=== PATIENT | male | born 1950 | race Two or more races ===

== ENCOUNTER 2018-07-25 08:47 | Emergency (ER) | payer MEDICARE, OTHER ==
[~2018-07-25] VITALS: Ht 165.1 cm; Wt 63.5 kg
[2018-07-25 09:15] VITALS: BP 167/83
[2018-07-25] MEDS ORDERED: cefTRIAXone SOD 1,000 MG VL IM ONE (10:00)
== END 2018-07-25 10:27 | disposition home or self-care (01) ==
LOC: ER 08:51
DX: K04.7 Periapical abscess without sinus (principal)
CPT/HCPCS: 41800; 96372; 99283; J0696

== ENCOUNTER 2018-08-23 11:23 | Emergency (ER) | payer MEDICARE ==
[~2018-08-23] VITALS: Ht 162.6 cm; Wt 70.3 kg
[2018-08-23 12:11] LABS: Basophils # (auto) 0 uL; Basophils % (auto) 0.2 % (0.0-2.0); Eosinophils # (auto) 0.3 uL; Eosinophils % (auto) 3.1 % (0.0-7.0); Hematocrit 47.8 % (41.0-53.0); Hemoglobin 16.3 g/dL (13.5-17.5); Lymphocytes # (auto) 1.6 uL; Lymphocytes % (auto) 18.4 % (10.0-50.0); Mean Corpuscular Hemoglobin 33.4 pg (28.0-32.0); Mean Corpuscular Hgb Conc. 34.1 g/dL (32.0-36.0); Mean Corpuscular Volume 97.8 fL (80.0-100.0); Monocytes # (auto) 0.9 uL; Monocytes % (auto) 10.4 % (0.0-12.0); Neutrophils # (auto) 5.7 uL; Neutrophils % (auto) 67.9 % (37.0-80.0); Nucleated Red Blood Cells % 0.1 %; Platelet Count (auto) 371 10^3/uL (140-450); Red Blood Cells 4.89 10^6/uL (4.5-5.90); Red Cell Distribution Width 12.8 % (11.8-14.3); White Blood Cell 8.5 10^3/uL (4.4-10.8)
[2018-08-23 12:20] LABS: Albumin 3.8 g/dL (3.4-5.0); Anion Gap 6 (5-15); Blood Urea Nitrogen 13 mg/dL (7-18); Calcium 8.9 mg/dL (8.5-10.1); Carbon Dioxide 28 mmol/L (21-32); Chloride 102 mmol/L (98-107); Glucose 103 mg/dL (74-106); Potassium 4.8 mmol/L (3.5-5.1); Sodium 136 mmol/L (136-145)
[2018-08-23 12:27] LABS: Alanine Aminotransferase 33 U/L (16-61); Alkaline Phosphatase 97 U/L (45-117); Aspartate Aminotransferase 30 U/L (15-37); BUN/Creatinine Ratio 13.3; Bilirubin, Total 0.7 mg/dL (0.2-1.0); GFR African American 98 mL/min; GFR Non-African American 81 mL/min; Total Protein 8.5 g/dL (6.4-8.2)
[2018-08-23 13:34] LABS: Urine Bacteria NONE SEEN /hpf (None Seen); Urine Blood TRACE /uL (Negative); Urine Mucus FEW (None Seen); Urine Specific Gravity 1.014 (1.001-1.035); Urine WBC <1 /hpf (0 - 3)
[2018-08-23] MEDS: SODIUM CHLORIDE 0.9% 1,000 ML IVB ONE (14:15)
[2018-08-23] MEDS: MORPHINE SULFATE 4 MG/ML SYR/VIAL IV ONE (15:32)
[2018-08-23] MEDS: ONDANSETRON HCL 4 MG/2 ML VIAL IV ONE (15:32)
[2018-08-23 17:01] VITALS: BP 156/92
== END 2018-08-23 17:11 | disposition home or self-care (01) ==
LOC: ER 11:34
CPT/HCPCS: 36415 ×2; 74176 ×2; 80053 ×2; 81001 ×2; 83690 ×2; 84484 ×2; 85025 ×2; 93005 ×2; 94761 ×2; 96374 ×2; 96375 ×2; 99284; J2270; J2405 ×2; J7030

== ENCOUNTER 2022-03-10 08:30 | Emergency (ER) | payer OTHER ==
[~2022-03-10] VITALS: Ht 160 cm; Wt 81.6 kg
[2022-03-10 09:00] VITALS: BP 150/72
[2022-03-10] MEDS ORDERED: methylPREDNISolone SOD SUCC 125 MG/2 ML VL IM ONE (09:30)
[2022-03-10] MEDS ORDERED: methylPREDNISolone SOD SUCC 125 MG/2 ML VL ONE (09:30)
[2022-03-10] MEDS ORDERED: KETOROLAC TROMETH 60MG/2ML VIAL IM ONE (09:30)
[2022-03-10] MEDS ORDERED: TRAM-297 PO ×2 (09:34→10:00)
== END 2022-03-10 09:46 | disposition home or self-care (01) ==
LOC: ER 08:30
DX: S83.91XA Sprain of unspecified site of right knee, initial encounter (principal); M13.861 Other specified arthritis, right knee; X50.1XXA Overexertion from prolonged static or awkward postures, initial encounter; Y93.89 Activity, other specified; Y92.89 Other specified places as the place of occurrence of the external cause; Y99.8 Other external cause status
CPT/HCPCS: 73562; 96372; 99284; J1885; J2930

== ENCOUNTER 2022-08-03 08:44 | Emergency (ER) | payer OTHER ==
[~2022-08-03] VITALS: Ht 162.6 cm; Wt 69.3 kg
[~2022-08-03 08:44] MED LIST: TRAM-297 PO
[2022-08-03 08:55] VITALS: BP 153/93
[2022-08-03] MEDS ORDERED: IBUP600T27 PO (09:53)
[2022-08-03] MEDS ORDERED: HYDR-4902 PO (09:53)
== END 2022-08-03 10:13 | disposition home or self-care (01) ==
LOC: ER 08:48
DX: M47.816 Spondylosis without myelopathy or radiculopathy, lumbar region (principal); M19.90 Unspecified osteoarthritis, unspecified site; M54.42 Lumbago with sciatica, left side; M10.9 Gout, unspecified; Z79.899 Other long term (current) drug therapy